=== PATIENT | female | born 2000 | race Caucasian/White ===

== ENCOUNTER 2022-04-05 14:37 | Emergency (ER) | payer OTHER ==
[~2022-04-05] VITALS: Ht 170.2 cm; Wt 58.5 kg
[2022-04-05] MEDS ORDERED: MUCINEX100 MG (14:47)
== END 2022-04-05 16:45 | disposition home or self-care (01) ==
LOC: ER 14:37
DX: B34.9 Viral infection, unspecified (principal); Z20.822 Contact with and (suspected) exposure to COVID-19